=== PATIENT | male | born 1965 | race Caucasian/White ===

== ENCOUNTER 2016-08-15 15:13 | Emergency (ER) | payer BC ==
[2016-08-15 15:20] VITALS: BP 130/84; BMI 25.4
--- NOTE | 2016-08-15 15:56 | DR.EXTPAIN ---
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 Ther was some bleeding; no SOB Chief Complaint:: WELDING WIRE IN CHEST Self Treatment fo Chief Complaint: PULLED WIRE OUT AND AREA IS SWOLLEN - Source History Provided: Patient - Mode of arrival Mode of Arrival: Ambulatory - Timing Onset of Chief Complaint: 08/15/16 PMH - PMH Past Medical History: Yes Past Medical History Comment: HEMACHROMATOSIS Past Surgical History: Yes Surgical History: Appendectomy, Ortho Surgery, Tonsillectomy - Family History History of Family Medical Conditions: Yes Family Medical History: Diabetes Mellitus, Cancer, Coronary Artery Disease, Hypertension - Social History Does patient currently use any type of tobacco product: Yes Have you used tobacco products in the last 12 months: Yes Type of Tobacco Use: CIG AND SM Alcohol Use: Occasionally Do you use any recreational Drugs:: No Lives With: Significant Other Lives Where: Home - infectious screening In the last 2 months have you had wt loss of >10#?: NO Have you had fever, night sweats or hemotysis?: No Have you traveled outside the country in the last 6 months?: No Isolation: Standard ROS - Review of Systems Eyes: No Symptoms Reported ENTM: No Symptoms Reported Respiratoy: No Symptoms Reported Cardiovascular: No Symptoms Reported Gastrointestinal/Abdominal: No Symptoms Reported Genitourinary: No Symptoms Reported Neurological: No Symptoms Reported Musculoskeletal: No Symptoms Reported Integumentary: No Symptoms Reported Hematologic/Lymphatic: No Symptoms Reported Endocrine: No Symptoms Reported Psychiatric: No Symptoms Reported All Other Systems: Reviewed and Negative PE - Vital Signs Vitals: Temperature 97.9 F Pulse Rate 86 Respiratory Rate 20 Blood Pressure [Right Arm] 112/74 Blood Pressure [Left Arm] 110/71 Blood Pressure 130/84 O2 Sat by Pulse Oximetry 97 Course - Reevaluation 1st: Unchanged ROR - Labs Reviewed Result Diagrams: 08/15/16 16:17 08/15/16 16:17 Laboratory: WBC 8.6 X10^3/uL (3.6-10.0) 08/15/16 16:17 RBC 4.94 X10^6/uL (4.7-6.0) 08/15/16 16:17 Hgb 15.8 g/dL (13.5-18.0) 08/15/16 16:17 Hct 45.6 % (42.0-54.0) 08/15/16 16:17 MCV 92.2 fL (80.0-100.0) 08/15/16 16:17 MCH 32.0 pg (27.0-34.0) 08/15/16 16:17 MCHC 34.7 g/dL (33.0-35.0) 08/15/16 16:17 RDW 13.7 % (11.6-16.5) 08/15/16 16:17 Plt Count 207 X10^3/uL (150.0-450.0) 08/15/16 16:17 MPV 9.0 fL (7.4-11.0) 08/15/16 16:17 Neut % 68.5 % (42.0-75.0) 08/15/16 16:17 Lymph % 21.3 % (21.0-51.0) 08/15/16 16:17 [place] % 7.5 % (0.0-13.0) 08/15/16 16:17 Eos % 1.7 % (0.9-2.9) 08/15/16 16:17 Baso % 1.0 % (0.2-1.0) 08/15/16 16:17 Neut # 5.9 x10^3/uL (2.2-4.8) H 08/15/16 16:17 Lymph # 1.8 X10^3/uL (1.3-2.9) 08/15/16 16:17 [place] # 0.6 x10^3/uL (0.3-0.8) 08/15/16 16:17 Eos # 0.2 x10^3/uL (0.0-0.2) 08/15/16 16:17 Baso # 0.1 X10^3/uL (0.0-0.1) 08/15/16 16:17 Absolute Nucleated RBC 0.0 /100WBC 08/15/16 16:17 Sodium 143 mmol/L (136-145) 08/15/16 16:17 Corrected Sodium TNP 08/15/16 16:17 Potassium 4.4 mmol/L (3.5-5.1) 08/15/16 16:17 Chloride 104 mmol/L (98-107) 08/15/16 16:17 Carbon Dioxide 30.5 mmol/L (21-32) 08/15/16 16:17 BUN 12 mg/dL (7-18) 08/15/16 16:17 Creatinine 1.13 mg/dL (0.70-1.30) 08/15/16 16:17 Est GFR (MDRD) Af Amer > 60 (>60) 08/15/16 16:17 Est GFR (MDRD) Non-Af > 60 (>60) 08/15/16 16:17 Glucose 81 mg/dL (65-99) 08/15/16 16:17 Calcium 9.2 mg/dL (8.5-10.1) 08/15/16 16:17 - XRAY XRAY Interpreted by: Radiologist (Chest: No acute cardiopulmonary disease) - Diagnosis Discharge Problem: Puncture wound of chest wall Qualifiers: Encounter type: initial encounter Qualified Code(s): S21.93XA - Puncture wound without foreign body of unspecified part of thorax, initial encounter - Discharge Plan Condition: Good - Follow ups/Referrals Follow ups/Referrals: Micheal Suárez [Primary Care Provider] - 3 days - Instructions
--- NOTE | 2016-08-15 16:12 | RAD ---
HISTORY: Wire pulled out of chest. Study: PA and lateral chest. Comparison: None. Findings: The trachea is midline. The cardiac silhouette is unremarkable. The lungs are clear without focal infiltrate or effusion. The bony thorax is unremarkable. No obvious retained radiopaque foreign les dy. IMPRESSION: 1. No acute cardiopulmonary disease. Reported By:
[2016-08-15 16:23] LABS: BASOPHILS # (AUTO) 0.1 X10^3/uL (0.0-0.1); EOSINOPHILS # (AUTO) 0.2 x10^3/uL (0.0-0.2); EOSINOPHILS % (AUTO) 1.7 % (0.9-2.9); HEMATOCRIT 45.6 % (42.0-54.0); HEMOGLOBIN 15.8 g/dL (13.5-18.0); LYMPHOCYTES # (AUTO) 1.8 X10^3/uL (1.3-2.9); LYMPHOCYTES % (AUTO) 21.3 % (21.0-51.0); MEAN CORPUSCULAR HGB CONC 34.7 g/dL (33.0-35.0); MEAN CORPUSCULAR VOLUME 92.2 fL (80.0-100.0); MONOCYTES # (AUTO) 0.6 x10^3/uL (0.3-0.8); MONOCYTES % (AUTO) 7.5 % (0.0-13.0); NEUTROPHILS # (AUTO) 5.9 x10^3/uL (2.2-4.8); NEUTROPHILS % (AUTO) 68.5 % (42.0-75.0); PLATELET COUNT 207 X10^3/uL (150.0-450.0); RED BLOOD COUNT 4.94 X10^6/uL (4.7-6.0); RED CELL DISTRIBUTION WIDTH 13.7 % (11.6-16.5); WHITE BLOOD COUNT 8.6 X10^3/uL (3.6-10.0)
[2016-08-15 16:31] LABS: BLOOD UREA NITROGEN 12 mg/dL (7-18); CALCIUM 9.2 mg/dL (8.5-10.1); CARBON DIOXIDE 30.5 mmol/L (21-32); CHLORIDE 104 mmol/L (98-107); CREATININE 1.13 mg/dL (0.70-1.30); GLUCOSE 81 mg/dL (65-99); SODIUM 143 mmol/L (136-145); eGFR BLACK RACES > 60 (>60); eGFR NON BLACK RACES > 60 (>60)
[2016-08-15] MEDS ORDERED: ADACEL TDaP IM ONE ×2 (16:37→16:42)
== END 2016-08-15 17:11 | disposition home or self-care (01) ==
LOC: ER 15:24
DX: S21.93XA Puncture wound without foreign body of unspecified part of thorax, initial encounter (principal); W89.0XXA Exposure to welding light (arc), initial encounter; Y92.9 Unspecified place or not applicable
CPT/HCPCS: 36415; 71020; 80048; 85025; 90471; 99283

== ENCOUNTER 2017-11-07 19:39 | Inpatient (IN) ==
[2017-11-07] MEDS ORDERED: TORADOL 60 MG VIAL IM ONE (20:50)
[2017-11-07] MEDS ORDERED: TORADOL 60 MG VIAL ONE (20:54)
--- NOTE | 2017-11-07 20:55 | DR.ABDMALE ---
HPI Time seen Time Seen by Provider: 11/07/17 20:39 HPI comment HPI Comment: PATIENT HAVE HAD INCREASING REDNESS, PAIN AND SWELLING FOR ONE WEEK. REDNESS IN BOTH SCROTUM. WORSE TODAY. NOTED SIGHT DRAINAGE FROM LESION ALSO. Complaint Chief Complaint Doctors Comments: ABSCESS UNDER RIGHT SCROTUM. PAIN FROM LESION EXTEND TO RIGHT GROIN AND BOTH SCROTUM. Chief Complaint:: Patient has dealing with this for a week. Pt says its like a cyst on his scrotum, on the right side. Tender to the touch. Hurts all around it. Pt states pus came out of it Saturday. Mode of arrival Mode of Arrival: Ambulatory Timing Onset of Chief Complaint: 11/07/17 Came on: Suddenly Duration Duration: Constant Duration: Days Location Location: RLQ (RIGHT ) Severity Severity: Moderate Quality Quality: Sharp and Stabbing Context Onset: Suddenly History of: None Modifying factors Worsening Factors: Position and Movement Improving Factors: Lying Still Associated signs and symptoms Associated Signs and Symptoms: None PMH PMH Past Medical History: No Past Surgical History: Yes Surgical History: Appendectomy, Ortho Surgery and Tonsillectomy Past Surgical History Comment: Vasectomy Family History History of Family Medical Conditions: Yes Family Medical History: Diabetes Mellitus, Cancer, Coronary Artery Disease and Hypertension Social History Alcohol Use: Occasionally Do you use any recreational Drugs:: No Lives With: Alone infectious screening Have you traveled outside the country in the last 6 months?: No Isolation: Standard ROS Review of Systems Constitutional: No Symptoms Reported Eyes: No Symptoms Reported ENTM: No Symptoms Reported Respiratoy: No Symptoms Reported Cardiovascular: No Symptoms Reported Gastrointestinal/Abdominal: Other (RIGHT GROIN PAIN.) Genitourinary: Other (ABSCESS RIGHT SCRTUM.) Neurological: No Symptoms Reported Musculoskeletal: No Symptoms Reported Integumentary: Lumps (ABSCESS RT SCRORUM.) Hematologic/Lymphatic: No Symptoms Reported Endocrine: No Symptoms Reported Psychiatric: No Symptoms Reported All Other Systems: Reviewed and Negative PE Vital Signs Vital Signs: Temp Pulse Pulse Resp BP BP BP 11/09/17 00:00 98.0 F 95 H 18 100/59 11/08/17 20:00 97.7 F 85 18 112/68 11/08/17 16:00 98.0 F 81 20 115/68 11/08/17 11:45 97.7 F 72 18 112/82 11/08/17 11:30 97.6 F 79 18 125/79 11/08/17 11:15 97.6 F 76 18 118/78 11/08/17 11:00 97.7 F 78 18 113/75 11/08/17 10:45 97.6 F 81 18 126/78 11/08/17 10:33 81 20 118/70 11/08/17 10:28 80 20 116/79 11/08/17 10:23 81 20 118/70 11/08/17 10:18 80 20 117/76 11/08/17 10:13 86 20 111/62 11/08/17 10:08 85 20 118/72 11/08/17 10:03 97.2 F L 85 20 111/62 11/08/17 08:00 98.7 F 59 L 18 111/51 11/08/17 04:00 97.8 F 84 20 112/69 11/08/17 00:04 80 110/70 11/08/17 00:00 98.2 F 100 H 20 120/70 11/07/17 20:05 98.7 F 98 H 20 112/72 08/15/16 15:15 130/84 06/27/12 08:00 110/71 06/24/12 12:00 112/74 Pulse Ox 11/09/17 00:00 97 11/08/17 20:00 96 11/08/17 16:00 97 11/08/17 11:45 97 11/08/17 11:30 98 11/08/17 11:15 98 11/08/17 11:00 97 11/08/17 10:45 96 11/08/17 10:33 96 11/08/17 10:28 96 11/08/17 10:23 96 11/08/17 10:18 96 11/08/17 10:13 96 11/08/17 10:08 96 11/08/17 10:03 96 11/08/17 08:00 97 11/08/17 04:00 96 11/08/17 00:04 11/08/17 00:00 97 11/07/17 20:05 95 08/15/16 15:15 06/27/12 08:00 06/24/12 12:00 General Limitations: No Limitations General Appearance: Alert and In No Apparent Distress Head Head Exam: Normal Inspection Eyes Eye exam: Normal Appearance and PERRL ENT ENT Exam: Normal Exam, Normal Oropharynx, Normal External Ear Exam and TM's Normal Bilaterally Neck Neck Exam: Normal Inspection and Trachea Midline Chest Chest Inspection: Normal Inspection and Symmetric Chest Wall Rise Respiratory Respiratory Exam: Normal Lung Sounds Bilat Respiratory Exam: Bilateral: Clear to Auscultation Cardiovascular Cardiovascular Exam: Regular Rate and Normal Rhythm Abdominal Exam Abdominal Exam: Normal Inspection, Normal Bowel Sounds, Soft and Tenderness Abdominal Tenderness: RLQ (TENDERNESS RT GROIN.) Rectal Rectal Exam: Deferred Back Back Exam: Normal Inspection Extremeties Extremities Exam: Normal Inspection Exam: Male: Testicular Tenderness, Scrotal Swelling, Erythema, Inguinal Lymphadenopathy and Other (ABSCESS WITH REDNESS BELOW RIGHT SCOTUM.) Neurologic Neurological Exam: Alert, Oriented X3 and CN II-XII Intact; negative Motor Sensory Deficit Psychiatric Psychiatric Exam: Normal Affect and Normal Mood Skin Skin Exam: Erythema MDM Additional Information Obtained From Additional information provided by: Family Differential Diagnosis Other differential diagnosis: ABSCESS RIGHT SCOTUM WITH CELLULITIS, HYDROCELE, ORCHITIS COURSE Treatment Treatment: SEE ORDERS. Consultation Consultation Comments: DISCUSS PATIENT WITH DR. ALEJANDRA ALSO AND HE WILL ADMIT PATIENT. DR. WEBER SURGEON WAS CONSULTED BEFORE [facility] AND HE WILL SEE PATIENT. Education/Counseling Education/Counseling: Patient, Family and Education Educated On: Diagnosis ROR Labs Reviewed Laboratory Results Reviewed?: Yes Result Diagrams: 11/08/17 04:35 11/08/17 04:35 Laboratory: 11/07/17 21:11 Scrotum Gram Stain - Final 11/07/17 21:11 Scrotum Wound Culture - Preliminary WBC 9.7 X10^3/uL (3.6-10.0) 11/08/17 04:35 RBC 4.43 X10^6/uL (4.7-6.0) L 11/08/17 04:35 Hgb 14.7 g/dL (13.5-18.0) 11/08/17 04:35 Hct 42.0 % (42.0-54.0) 11/08/17 04:35 MCV 94.9 fL (80.0-100.0) 11/08/17 04:35 MCH 33.2 pg (27.0-34.0) 11/08/17 04:35 MCHC 35.0 g/dL (33.0-35.0) 11/08/17 04:35 RDW 13.1 % (11.6-16.5) 11/08/17 04:35 Plt Count 181 X10^3/uL (150.0-450.0) 11/08/17 04:35 MPV 9.0 fL (7.4-11.0) 11/08/17 04:35 Neut % (Auto) 60.0 % (42.0-75.0) 11/08/17 04:35 Lymph % (Auto) 26.2 % (21.0-51.0) 11/08/17 04:35 [place] % (Auto) 8.8 % (0.0-13.0) 11/08/17 04:35 Eos % (Auto) 4.4 % (0.9-2.9) H 11/08/17 04:35 Baso % (Auto) 0.6 % (0.2-1.0) 11/08/17 04:35 Neut # (Auto) 5.8 x10^3/uL (2.2-4.8) H 11/08/17 04:35 Lymph # (Auto) 2.5 X10^3/uL (1.3-2.9) 11/08/17 04:35 [place] # (Auto) 0.9 x10^3/uL (0.3-0.8) H 11/08/17 04:35 Eos # (Auto) 0.4 x10^3/uL (0.0-0.2) H 11/08/17 04:35 Baso # (Auto) 0.1 X10^3/uL (0.0-0.1) 11/08/17 04:35 Absolute Nucleated RBC 0.1 /100WBC 11/08/17 04:35 Sodium 141 mmol/L (136-145) 11/08/17 04:35 Corrected Sodium TNP 11/08/17 04:35 Potassium 3.5 mmol/L (3.5-5.1) 11/08/17 04:35 Chloride 105 mmol/L (98-107) 11/08/17 04:35 Carbon Dioxide 30.5 mmol/L (21-32) 11/08/17 04:35 BUN 16 mg/dL (7-18) 11/08/17 04:35 Creatinine 1.11 mg/dL (0.70-1.30) 11/08/17 04:35 Est GFR (MDRD) Af Amer > 60 (>60) 11/08/17 04:35 Est GFR (MDRD) Non-Af > 60 (>60) 11/08/17 04:35 Glucose 96 mg/dL (65-99) 11/08/17 04:35 Lactic Acid 1.0 mmol/L (0.4-2.0) 11/07/17 20:59 Calcium 8.3 mg/dL (8.5-10.1) L 11/08/17 04:35 Corrected Calcium 9.0 mg/dL (8.5-10.1) 11/08/17 04:35 Total Bilirubin 0.50 mg/dL (0.2-1.0) 11/08/17 04:35 AST 25 Units/L (15-37) 11/08/17 04:35 ALT 36 Units/L (12-78) 11/08/17 04:35 Alkaline Phosphatase 66 Units/L (46-116) 11/08/17 04:35 C-Reactive Protein 11.30 mg/L (0-3.0) H 11/07/17 20:59 Total Protein 6.1 g/dL (6.4-8.2) L 11/08/17 04:35 Albumin 3.1 g/dL (3.4-5.0) L 11/08/17 04:35 Globulin 3.0 g/dL (2.5-4.5) 11/08/17 04:35 Albumin/Globulin Ratio 1.0 Ratio (1.1-2.1) L 11/08/17 04:35 Specimen Type Clean catch urine 11/07/17 21:15 Urine Color Pale yellow (YELLOW) 11/07/17 21:15 Urine Appearance Clear (CLEAR) 11/07/17 21:15 Urine pH 6.5 (5.0 - 8.0) 11/07/17 21:15 Ur Specific [place] 1.010 (1.000-1.030) 11/07/17 21:15 Urine Protein Negative (NEGATIVE) 11/07/17 21:15 Urine Glucose (UA) Negative (NEGATIVE) 11/07/17 21:15 Urine Ketones Negative (NEGATIVE) 11/07/17 21:15 Urine Occult Blood Negative (NEGATIVE) 11/07/17 21:15 Urine Nitrite Negative (NEGATIVE) 11/07/17 21:15 Urine Bilirubin Negative (NEGATIVE) 11/07/17 21:15 Urine Urobilinogen Normal (NORMAL) 11/07/17 21:15 Ur Leukocyte Esterase 1+ (NEGATIVE) 11/07/17 21:15 Urine RBC None seen /HPF (NONE SEEN) 11/07/17 21:15 Urine WBC 0-2 /HPF (NONE SEEN) 11/07/17 21:15 Ur Squamous Epith Cells Moderate /HPF (NEGATIVE) 11/07/17 21:15 Urine Bacteria Negative /HPF (NEGATIVE) 11/07/17 21:15 Ur Culture Indicated? No/not indicated 11/07/17 21:15 Tissue Pathology To follow 11/08/17 10:27 Instructions Instructions: Skin Abscess, [id number] Cellulitis, Adult, [id number] Incision and Drainage, Care After Testicular Self-Exam, [id number] Antibiotic Medicine, Adult Forms: Patient Portal
[2017-11-07 21:10] LABS: BASOPHILS # (AUTO) 0.1 X10^3/uL (0.0-0.1); BASOPHILS % (AUTO) 0.7 % (0.2-1.0); EOSINOPHILS # (AUTO) 0.4 x10^3/uL (0.0-0.2); EOSINOPHILS % (AUTO) 3.7 % (0.9-2.9); HEMATOCRIT 44.5 % (42.0-54.0); HEMOGLOBIN 15.5 g/dL (13.5-18.0); LYMPHOCYTES # (AUTO) 2.1 X10^3/uL (1.3-2.9); LYMPHOCYTES % (AUTO) 17.9 % (21.0-51.0); MEAN CORPUSCULAR HEMOGLOBIN 33.1 pg (27.0-34.0); MEAN CORPUSCULAR HGB CONC 34.8 g/dL (33.0-35.0); MEAN PLATELET VOLUME 9.3 fL (7.4-11.0); MONOCYTES # (AUTO) 0.8 x10^3/uL (0.3-0.8); MONOCYTES % (AUTO) 6.8 % (0.0-13.0); NEUTROPHILS # (AUTO) 8.3 x10^3/uL (2.2-4.8); NEUTROPHILS % (AUTO) 70.9 % (42.0-75.0); PLATELET COUNT 195 X10^3/uL (150.0-450.0); RED BLOOD COUNT 4.68 X10^6/uL (4.7-6.0); RED CELL DISTRIBUTION WIDTH 13.1 % (11.6-16.5); WHITE BLOOD COUNT 11.7 X10^3/uL (3.6-10.0)
[2017-11-07 21:18] LABS: ALANINE AMINOTRANSFERASE 37 Units/L (12-78); ALBUMIN 3.8 g/dL (3.4-5.0); ALKALINE PHOSPHATASE 77 Units/L (46-116); ASPARTATE AMINO TRANSFERASE 24 Units/L (15-37); BLOOD UREA NITROGEN 14 mg/dL (7-18); CALCIUM 8.6 mg/dL (8.5-10.1); CARBON DIOXIDE 30.1 mmol/L (21-32); CHLORIDE 103 mmol/L (98-107); CREATININE 1.15 mg/dL (0.70-1.30); SODIUM 141 mmol/L (136-145); TOTAL PROTEIN 7.1 g/dL (6.4-8.2); eGFR NON BLACK RACES > 60 (>60)
[2017-11-07 21:32] LABS: BILIRUBIN,URINE NEGATIVE (NEGATIVE); BLOOD/HEMOGLOBIN,URINE NEGATIVE (NEGATIVE); GLUCOSE, URINE NEGATIVE (NEGATIVE); KETONES,URINE NEGATIVE (NEGATIVE); LEUKOCYTE ESTERASE ,URINE 1+ (NEGATIVE); NITRITES,URINE NEGATIVE (NEGATIVE); PH,URINE 6.5 (5.0 - 8.0); PROTEIN,URINE NEGATIVE (NEGATIVE); UROBILINOGEN,URINE NORMAL (NORMAL)
[2017-11-07 21:50] LABS: APPEARANCE,URINE CLEAR (CLEAR); BACTERIA,URINE NEGATIVE /HPF (NEGATIVE); COLOR,URINE PALE YELLOW (YELLOW); RBC,URINE NONE SEEN /HPF (NONE SEEN); SQUAMOUS EPITHELIAL CELL,UR MODERATE /HPF (NEGATIVE)
[2017-11-08] MEDS ORDERED: MOTRIN TAB 600 MG PO PRN (00:14)
[2017-11-08] MEDS ORDERED: PHENERGAN TAB 25 MG PO PRN (00:14)
[2017-11-08] MEDS ORDERED: BACTRIM DS TAB PO ONE (00:14)
[2017-11-08] MEDS ORDERED: ZOFRAN TAB 4 MG SL PRN (00:19)
[2017-11-08] MEDS ORDERED: VANCOMYCIN HCL 1 GM VIAL ONE (00:26)
[2017-11-08] MEDS ORDERED: D5W 250 ML IV 250 ML IV ONE (00:27)
[2017-11-08] MEDS: VANCOMYCIN HCL 1 GM VIAL 1 G in D5W 250 ML IV 250 ML IV SCH ×3 (00:33→20:30)
[2017-11-08] MEDS: NS 1000 ML 1,000 ML IV SCH ×3 (00:34→17:44)
[2017-11-08] MEDS: MORPHINE SULFATE INJ 4 MG IVP PRN ×3 (00:45→13:57)
[2017-11-08 01:18] VITALS: BMI 24.4
[2017-11-08 04:52] LABS: BASOPHILS # (AUTO) 0.1 X10^3/uL (0.0-0.1); BASOPHILS % (AUTO) 0.6 % (0.2-1.0); EOSINOPHILS # (AUTO) 0.4 x10^3/uL (0.0-0.2); EOSINOPHILS % (AUTO) 4.4 % (0.9-2.9); HEMOGLOBIN 14.7 g/dL (13.5-18.0); LYMPHOCYTES # (AUTO) 2.5 X10^3/uL (1.3-2.9); LYMPHOCYTES % (AUTO) 26.2 % (21.0-51.0); MEAN CORPUSCULAR HEMOGLOBIN 33.2 pg (27.0-34.0); MEAN CORPUSCULAR VOLUME 94.9 fL (80.0-100.0); MONOCYTES # (AUTO) 0.9 x10^3/uL (0.3-0.8); MONOCYTES % (AUTO) 8.8 % (0.0-13.0); NEUTROPHILS # (AUTO) 5.8 x10^3/uL (2.2-4.8); PLATELET COUNT 181 X10^3/uL (150.0-450.0); RED BLOOD COUNT 4.43 X10^6/uL (4.7-6.0); RED CELL DISTRIBUTION WIDTH 13.1 % (11.6-16.5); WHITE BLOOD COUNT 9.7 X10^3/uL (3.6-10.0)
[2017-11-08 05:06] LABS: ALANINE AMINOTRANSFERASE 36 Units/L (12-78); ALBUMIN 3.1 g/dL (3.4-5.0); ALKALINE PHOSPHATASE 66 Units/L (46-116); ASPARTATE AMINO TRANSFERASE 25 Units/L (15-37); BLOOD UREA NITROGEN 16 mg/dL (7-18); CALCIUM 8.3 mg/dL (8.5-10.1); CARBON DIOXIDE 30.5 mmol/L (21-32); CHLORIDE 105 mmol/L (98-107); CREATININE 1.11 mg/dL (0.70-1.30); SODIUM 141 mmol/L (136-145); TOTAL PROTEIN 6.1 g/dL (6.4-8.2); eGFR NON BLACK RACES > 60 (>60)
[2017-11-08] MEDS ORDERED: XYLOCAINE 1 % (PLAIN) ONE (08:50)
[2017-11-08] MEDS ORDERED: LR 1000 ML IV 1,000 ML IV ONE (09:32)
--- NOTE | 2017-11-08 09:40 | DR.H&P ---
H&P - History & Physical for Day of: H&P Date: 11/07/17 - Chief Complaint Chief Complaint: SCROTAL SWELLING, CYST DRAINING - History of Present Illness History of Present Illness: 52 WM ER ADMISSION WITH SCROTAL ABSCESS, CELLULITIS. PT STATES HE HAS HAD DRAINING CYST WITH SEVERE PAIN REDNESS AND SWELLING TO HIS SCROTUM X 1 WEEK. PT HAS USED HOT COMPRESSES AND DRAINED EARLIER IN THE WEEK, THICK PURULENT DC. PT HAS PMH OF DAILY NICOTINE USE, OCCASSIONAL SMOKER, HTN, DENIES DM CARDIAC DISEASE. PT ADMITTED FOR ATBX, SURGICAL CONSULT, PAIN CONTROL - Past Medical History Past Medical History: GERD, Hypertension - Past Surgical History Surgical History: Appendectomy, Ortho Surgery, Tonsillectomy - Family History Family Medical History: Diabetes Mellitus, Cancer, Coronary Artery Disease - Social History Does patient currently use any type of tobacco product: Yes Have you used tobacco products in the last 12 months: Yes Type of Tobacco Use: Cigarettes Does any household member use tobacco: No Alcohol Use: Occasionally Drug Use: None - Medications Home Medications: promethazine [From Phenergan] Allergy (Verified 11/07/17 23:16) Steroids Allergy (Severe, Uncoded 09/24/13 10:41) Retina bleed CONTINUE taking the following medications cetirizine [Zyrtec] 10 mg PO HS PRN 11/07/17 [History] clonazepam 1 tab PO HS PRN 11/07/17 [History] ibuprofen [Motrin IB] 200 mg PO PRN PRN 11/07/17 [History] - Review of Systems Constitutional: Fever Eyes: No Symptoms Reported, Vision Change Respiratory: No Symptoms Reported Cardiovascular: No Symptoms Reported Gastrointestinal: No Symptoms Reported Genitourinary: No Symptoms Reported Musculoskeletal: No Symptoms Reported Skin: Wound Neurological: No Symptoms Reported - Physical Exam Vital Signs: Temperature 98.7 F Pulse Rate [Left] 59 Pulse Rate 98 Respiratory Rate 18 Blood Pressure [Right Arm] 112/74 Blood Pressure [Left Arm] 111/51 Blood Pressure 112/72 O2 Sat by Pulse Oximetry 97 Oriented: Normal Eyes: Normal Ear: Normal Nose: Normal Throat: Normal Respiratory: Clear Throughout Cardiovascular: Normal : Normal Auscultation: Bowel Sounds: Normal Palpation: Normal Tenderness: Normal Skin: Red, Tender, Hot, Wound Musculoskeletal: Normal Psychiatric: Normal Mood Description: Calm Affect: Angry Speech Pattern: Clear - Assessment/Plan (1) Scrotum, abscess Status: Acute Plan: ADMIT, NPO, IV VANCOMYCIN. SURGICAL CONSULT, PAIN CONTROL (2) Cellulitis Status: Acute - Allergies Allergies/Adverse Reactions: Allergies Allergy/AdvReac Type Severity Reaction Status Date / Time promethazine [From Phenergan] Allergy Verified 11/07/17 23:16 Steroids Allergy Severe Retina Uncoded 09/24/13 10:41 bleed
--- NOTE | 2017-11-08 10:19 | DR.PROGNOT ---
Hospital Progress Notes - Progress Note for Day of: Progress Note Date: 11/01/17 - Chief Complaint Chief Complaint: debridement of Rt scrotal abscess done under [facility] . packed with Iodoform . to change dressing daily and PRN.. will follow in 3 days . on oral Bactrim and Cipro - Past Medical Family Social History Past Med/Fam/Surg Hx: No changes since H&P Allergies: Allergies promethazine [From Phenergan] Allergy (Verified 11/07/17 23:16) Steroids Allergy (Severe, Uncoded 09/24/13 10:41) Retina bleed - Review Of Systems ROS: No change since H&P - Vital Signs Vital Signs: Temperature 97.2 F Pulse Rate [Left] 59 Pulse Rate 85 Respiratory Rate 20 Blood Pressure [Right Arm] 112/74 Blood Pressure [Left Arm] 111/51 Blood Pressure 111/62 O2 Sat by Pulse Oximetry 96 - Physical Exam Oriented: Normal Eyes: Normal Ear: Normal Nose: Normal Throat: Normal Cardiovascular: Normal : Normal GI:Auscultation: Normal GI:Palpation: Normal GI: Tenderness: Normal Skin: Red, Tender, Hot, Wound Musculoskeletal: Normal Psychiatric: Normal Mood Description: Calm Affect: Angry Speech Pattern: Clear - Laboratory and Diagnostics Result Diagrams: 11/08/17 04:35 11/08/17 04:35 Labs: 11/07/17 21:11 Scrotum Gram Stain - Final Laboratory WBC 9.7 X10^3/uL (3.6-10.0) 11/08/17 04:35 RBC 4.43 X10^6/uL (4.7-6.0) L 11/08/17 04:35 Hgb 14.7 g/dL (13.5-18.0) 11/08/17 04:35 Hct 42.0 % (42.0-54.0) 11/08/17 04:35 MCV 94.9 fL (80.0-100.0) 11/08/17 04:35 MCH 33.2 pg (27.0-34.0) 11/08/17 04:35 MCHC 35.0 g/dL (33.0-35.0) 11/08/17 04:35 RDW 13.1 % (11.6-16.5) 11/08/17 04:35 Plt Count 181 X10^3/uL (150.0-450.0) 11/08/17 04:35 MPV 9.0 fL (7.4-11.0) 11/08/17 04:35 Neut % (Auto) 60.0 % (42.0-75.0) 11/08/17 04:35 Lymph % (Auto) 26.2 % (21.0-51.0) 11/08/17 04:35 [place] % (Auto) 8.8 % (0.0-13.0) 11/08/17 04:35 Eos % (Auto) 4.4 % (0.9-2.9) H 11/08/17 04:35 Baso % (Auto) 0.6 % (0.2-1.0) 11/08/17 04:35 Neut # (Auto) 5.8 x10^3/uL (2.2-4.8) H 11/08/17 04:35 Lymph # (Auto) 2.5 X10^3/uL (1.3-2.9) 11/08/17 04:35 [place] # (Auto) 0.9 x10^3/uL (0.3-0.8) H 11/08/17 04:35 Eos # (Auto) 0.4 x10^3/uL (0.0-0.2) H 11/08/17 04:35 Baso # (Auto) 0.1 X10^3/uL (0.0-0.1) 11/08/17 04:35 Absolute Nucleated RBC 0.1 /100WBC 11/08/17 04:35 Sodium 141 mmol/L (136-145) 11/08/17 04:35 Corrected Sodium TNP 11/08/17 04:35 Potassium 3.5 mmol/L (3.5-5.1) 11/08/17 04:35 Chloride 105 mmol/L (98-107) 11/08/17 04:35 Carbon Dioxide 30.5 mmol/L (21-32) 11/08/17 04:35 BUN 16 mg/dL (7-18) 11/08/17 04:35 Creatinine 1.11 mg/dL (0.70-1.30) 11/08/17 04:35 Est GFR (MDRD) Af Amer > 60 (>60) 11/08/17 04:35 Est GFR (MDRD) Non-Af > 60 (>60) 11/08/17 04:35 Glucose 96 mg/dL (65-99) 11/08/17 04:35 Lactic Acid 1.0 mmol/L (0.4-2.0) 11/07/17 20:59 Calcium 8.3 mg/dL (8.5-10.1) L 11/08/17 04:35 Corrected Calcium 9.0 mg/dL (8.5-10.1) 11/08/17 04:35 Total Bilirubin 0.50 mg/dL (0.2-1.0) 11/08/17 04:35 AST 25 Units/L (15-37) 11/08/17 04:35 ALT 36 Units/L (12-78) 11/08/17 04:35 Alkaline Phosphatase 66 Units/L (46-116) 11/08/17 04:35 C-Reactive Protein 11.30 mg/L (0-3.0) H 11/07/17 20:59 Total Protein 6.1 g/dL (6.4-8.2) L 11/08/17 04:35 Albumin 3.1 g/dL (3.4-5.0) L 11/08/17 04:35 Globulin 3.0 g/dL (2.5-4.5) 11/08/17 04:35 Albumin/Globulin Ratio 1.0 Ratio (1.1-2.1) L 11/08/17 04:35 Specimen Type Clean catch urine 11/07/17 21:15 Urine Color Pale yellow (YELLOW) 11/07/17 21:15 Urine Appearance Clear (CLEAR) 11/07/17 21:15 Urine pH 6.5 (5.0 - 8.0) 11/07/17 21:15 Ur Specific [place] 1.010 (1.000-1.030) 11/07/17 21:15 Urine Protein Negative (NEGATIVE) 11/07/17 21:15 Urine Glucose (UA) Negative (NEGATIVE) 11/07/17 21:15 Urine Ketones Negative (NEGATIVE) 11/07/17 21:15 Urine Occult Blood Negative (NEGATIVE) 11/07/17 21:15 Urine Nitrite Negative (NEGATIVE) 11/07/17 21:15 Urine Bilirubin Negative (NEGATIVE) 11/07/17 21:15 Urine Urobilinogen Normal (NORMAL) 11/07/17 21:15 Ur Leukocyte Esterase 1+ (NEGATIVE) 11/07/17 21:15 Urine RBC None seen /HPF (NONE SEEN) 11/07/17 21:15 Urine WBC 0-2 /HPF (NONE SEEN) 11/07/17 21:15 Ur Squamous Epith Cells Moderate /HPF (NEGATIVE) 11/07/17 21:15 Urine Bacteria Negative /HPF (NEGATIVE) 11/07/17 21:15 Ur Culture Indicated? No/not indicated 11/07/17 21:15 - Assessment and Plan 1: abscess , cellulitis Rt scrotum . on IV ATB now . will D/C later on and follow next week. - Problem Patient Problems: Patient Problems Scrotum, abscess (Acute) N49.2 Cellulitis (Acute) L03.90
[2017-11-08] MEDS ORDERED: BENADRYL INJ 50 MG VIAL IVP PRN (10:21)
[2017-11-08] MEDS ORDERED: DILAUDID INJ IVP PRN (10:21)
[2017-11-08] MEDS ORDERED: ZOFRAN INJ 4 MG VIAL IVP PRN (10:21)
[2017-11-08] MEDS ORDERED: REGLAN INJ 10 MG VIAL IVP PRN (10:21)
[2017-11-08] MEDS ORDERED: PHENERGAN INJ 25 MG IVP PRN (10:21)
--- NOTE | 2017-11-08 10:23 | RAD ---
HISTORY: Preop scrotal abscess Study: Chest AP Comparison: 08/15/2016 Findings: The heart is within normal limits in size. The ángel are normal. The lung hanks are clear. No pleural effusions are identified. The bony thorax is unremarkable. IMPRESSION: Clear chest Reported By:
[2017-11-08] MEDS ORDERED: DILAUDID INJ ONE ×2 (10:28→11:43)
[2017-11-08] MEDS ORDERED: DILAUDID INJ IVP ONE (11:41)
[2017-11-08] MEDS ORDERED: VERSED ONE (15:22)
[2017-11-08] MEDS ORDERED: DIPRIVAN VIAL ONE (15:22)
[2017-11-08] MEDS ORDERED: ULTANE GAS IN ONE (15:22)
--- NOTE | 2017-11-08 17:48 | US ---
HISTORY: Status post drainage of a scrotal abscess. Study: Scrotal ultrasound: Multiplanar ultrasonographic examination of the scrotum and its contents was performed. Comparison: None Findings: Overall examination of the scrotum reveals there to be thickening of the scrotal sac. This most like ly is due to inflammatory reaction. Along the right side of the scrotum there is what appears to be a focal area of shadowing measuring approximately 9.5 mm in maximum with. There is either calcificat ion, surgical packing or gas within the area producing shadowing. Clinical correlation is recommende d. Right testicle: 3.5 cm in length by 2.6 x 2.1 cm. A small hydrocele is present. The epididymis as visualized is normal. Left testicle: 4.1 cm in length by 2.9 x 2.1 cm. A moderate-sized hydrocele is noted with what appe ars to be internal debris. The epididymis as visualized is normal. There is suggestion of a possibl e varicocele on the left. IMPRESSION: 1. Intrinsically the testicles appear normal and show symmetric vascular flow. 2. Bilateral hydroceles, left larger than right. 3. In the region where there has been surgical drainage of an abscess there is partial linear echogen ic band with marked shadowing posterior to this. This may be due to gas within the area of drainage or packing. Clinical correlation recommended. 4. Questionable varicocele on the left. Reported By:
[2017-11-09] MEDS: NS 1000 ML 1,000 ML IV SCH (04:25)
[2017-11-09 04:37] LABS: BASOPHILS % (AUTO) 0.3 % (0.2-1.0); EOSINOPHILS # (AUTO) 0.4 x10^3/uL (0.0-0.2); EOSINOPHILS % (AUTO) 4.1 % (0.9-2.9); HEMOGLOBIN 13.8 g/dL (13.5-18.0); LYMPHOCYTES # (AUTO) 1.5 X10^3/uL (1.3-2.9); MEAN CORPUSCULAR HGB CONC 34.6 g/dL (33.0-35.0); MEAN CORPUSCULAR VOLUME 95.3 fL (80.0-100.0); MEAN PLATELET VOLUME 9.4 fL (7.4-11.0); MONOCYTES # (AUTO) 0.7 x10^3/uL (0.3-0.8); NEUTROPHILS # (AUTO) 6.3 x10^3/uL (2.2-4.8); NEUTROPHILS % (AUTO) 70.6 % (42.0-75.0); PLATELET COUNT 182 X10^3/uL (150.0-450.0); RED CELL DISTRIBUTION WIDTH 13.2 % (11.6-16.5)
[2017-11-09 04:52] LABS: ALANINE AMINOTRANSFERASE 29 Units/L (12-78); ALBUMIN 2.9 g/dL (3.4-5.0); ALKALINE PHOSPHATASE 68 Units/L (46-116); ASPARTATE AMINO TRANSFERASE 17 Units/L (15-37); BLOOD UREA NITROGEN 10 mg/dL (7-18); CARBON DIOXIDE 31.3 mmol/L (21-32); CHLORIDE 106 mmol/L (98-107); COR CA(FOR HYPOALB) 8.9 mg/dL (8.5-10.1); CREATININE 1.18 mg/dL (0.70-1.30); SODIUM 141 mmol/L (136-145); TOTAL PROTEIN 5.6 g/dL (6.4-8.2); eGFR NON BLACK RACES > 60 (>60)
[2017-11-09] MEDS ORDERED: PHARMACY COMMENT IV NR (08:30)
[2017-11-09 08:49] VITALS: BP 103/61
[2017-11-09 09:13] LABS: CREATININE 1.29 mg/dL (0.70-1.30); VANCOMYCIN,TROUGH 10.1 ug/mL (15-20)
[2017-11-09] MEDS: VANCOMYCIN HCL 1 GM VIAL 1 G in D5W 250 ML IV 250 ML IV SCH (10:14)
[2017-11-09] MEDS ORDERED: NORCO 10/325 TAB PO PRN (11:30)
[2017-11-10] MEDS ORDERED: PHARMACY COMMENT IV NR (20:30)
== END 2017-11-09 15:00 | disposition home or self-care (01) | DRG 718 ==
LOC: ER 20:03 → MED/SURG 23:33
PROVIDERS: ADMIT Internal Medicine; ATTEND Internal Medicine
DX: I10 Essential (primary) hypertension; N49.2 Inflammatory disorders of scrotum; B95.62 Methicillin resistant Staphylococcus aureus infection as the cause of diseases classified elsewhere; E83.118 Other hemochromatosis; K21.9 Gastro-esophageal reflux disease without esophagitis; R79.82 Elevated C-reactive protein (CRP)
CPT/HCPCS: 36415; 71010; 71045; 76870; 80053; 80202; 81001; 82565; 82728; 83605; 85025; 86140; 87070; 87077; 87186; 87205; 93005; 93010; 96365; 96372; 99195; 99284; A4216; A4222; J1170; J1885; J2250; J2270; J2704; J3370; J7030; J7060; J7120; S0181